=== PATIENT | male | born 1955 | race Caucasian/White ===

== ENCOUNTER 2018-08-18 19:32 | Emergency (ER) | payer OTHER ==
[~2018-08-18] VITALS: Ht 185.4 cm; Wt 96.3 kg
[2018-08-18 20:02] VITALS: Ht 185.4 cm; Wt 96.3 kg
[2018-08-18 21:49] LABS: microscopic required? YES; urine erythrocyte 3+ (NEGATIVE)
[2018-08-18 21:57] LABS: BASOPHIL % 0.4 % (0-2); RED CELL DISTRIBUTION WIDTH 14.5 % (11.5-14.5)
[2018-08-18 22:04] LABS: CALCIUM 9.1 mg/dL (8.5-10.1); CARBON DIOXIDE 19.3 mmol/L (21-32); CREATININE SERUM 1.5 mg/dL (0.7-1.3); POTASSIUM SERUM 3.4 mmol/L (3.5-5.1)
[2018-08-18 22:08] LABS: PLATELET COUNT 95 x10^3mcL (130-400)
[2018-08-18 22:09] LABS: ALBUMIN 3.4 g/dL (3.4-5.0); BILIRUBIN TOTAL 1.63 mg/dL (0.20-1.00)
[2018-08-19 00:35] VITALS: BP 147/89
== END 2018-08-19 00:35 | disposition home or self-care (01) ==
LOC: ED 19:32
PROVIDERS: Specialist
DX: N39.0 Urinary tract infection, site not specified (principal); I10 Essential (primary) hypertension; E11.9 Type 2 diabetes mellitus without complications; J44.9 Chronic obstructive pulmonary disease, unspecified; Z98.890 Other specified postprocedural states
CPT/HCPCS: 82962; J0696; J1815; J1885; J2270; Q0162; Q9967